=== PATIENT | male | born 1940 | race Caucasian/White ===

== ENCOUNTER 2016-04-30 08:35 | Outpatient (CLI) | payer MEDICARE ==
[2016-04-30 08:30] VITALS: BP 119/63
[~2016-04-30 08:35] MED LIST: ALBUTEROL-200 PUFFS/ IH; ALBUTEROL2.5 MG/NEB IN; ALEVE220 MG PO; ASPIRIN 325MG325 MG PO; ASTELIN NA137 MCG/BO; AZELASTINE137 MCG/Ac; BIAXIN FILMTAB500 MG PO; CEPHALEXIN500 MG PO; CIPROFLOXACIN500 MG PO; CLARITIN 10MG T10 MG PO; CO Q PO; DULERA1 AR1 IH; DULERA1 ARO IH; FERGON240 MG PO; FLOVENT 22220 MCG/PU IH; FLUTICASONE 50M16 GM; HUMALOG MIX 75/10 ML SC; HYDROCODONE-APA1 TA1 PO; KEFLEX500 M1 PO; LANTUS INS100 UNITS/ SC; LEVOTHYROXINE0.15 M1 PO; LOSARTAN POTASS50 MG PO; MEDROL 4MG TABLE4 MG PO; METFORMIN500 MG PO; MULTI VITAMINS1 TA1 PO; NEURONTIN 100100 MG PO; PERFOROMIS20 MCG/2 M IH; PHENAZOPYRIDIN200 MG PO; SINGULAIR4 MG PO; TAMSULOSIN HYD0.4 MG PO; TRAZODONE 50MG50 MG PO; XOLAIR150 MG SC; ZOCOR40 MG PO; [UNRECOGNIZED DRUG - OTHER] PO
[2016-05-14] MEDS ORDERED: IBUPROFEN400 MG PO (08:35)
[2016-06-11] MEDS ORDERED: ADVAIR HFA1 AER IH (08:31)
[2016-06-25] MEDS ORDERED: SINGULAIR10 MG PO (08:30)
[2016-08-06] MEDS ORDERED: HCTZ/TRIAMTEREN1 CA2 PO (08:39)
[2016-08-06] MEDS ORDERED: SPIRIVA RE2.5 MCG/Ac IH (08:40)
== END 2016-04-30 09:15 | disposition home or self-care (01) ==
LOC: COP 08:35
DX: J45.909 Unspecified asthma, uncomplicated (principal)
CPT/HCPCS: J2357

== ENCOUNTER 2016-05-28 08:00 | Outpatient (CLI) | payer MEDICARE ==
[2016-05-28 08:00] VITALS: BP 108/66
[~2016-05-28 08:00] MED LIST changes: +IBUPROFEN400 MG PO
--- NOTE | 2016-05-28 21:55 | RADIOLOGY REPORT PS360 ---
CHEST(2 VIEWS-NOT PORTABLE) ORDERING PHYSICIAN : SHEILA ZEPEDA PATIENT AGE: 76 years GENDER: Male INDICATION: chest symptomsCOUGH PROCEDURE: CHEST(2 VIEWS-NOT PORTABLE) COMPARISON: None available FINDINGS: Suboptimal inspiration with Diaphragms only down to the anterior fifth rib Elevation of the diaphragm also reflects the less than optimal inspiration Bibasilar atelectasis. . Difficult to exclude a minimal wispy infiltrate right lower lobe and possibly left on lateral view. Going through other prior studies the patient has had areas of pneumonia at right lower lobe more so than left in the past resulting likely is some scarring here as seen on prior CT chest. The heart is normal size. The jose and mediastinal structures appear stable. Chest wall unremarkable T-spine unremarkable. No pleural effusion. No pneumothorax. IMPRESSION . suboptimal inspiration with bibasilar atelectasis. Difficult to exclude minimal wispy infiltrate towards lower lobes bilaterally, but favor mainly viewing atelectasis and possibly minimal linear scarring . If symptoms progress consider follow-up. . .
[2016-06-11] MEDS ORDERED: ADVAIR HFA1 AER IH (08:31)
[2016-06-25] MEDS ORDERED: SINGULAIR10 MG PO (08:30)
[2016-08-06] MEDS ORDERED: HCTZ/TRIAMTEREN1 CA2 PO (08:39)
[2016-08-06] MEDS ORDERED: SPIRIVA RE2.5 MCG/Ac IH (08:40)
== END 2016-05-28 08:45 | disposition home or self-care (01) ==
LOC: RAD 08:00 → COP 08:00
DX: J45.909 Unspecified asthma, uncomplicated (principal)
CPT/HCPCS: J2357

== ENCOUNTER → 2016-06-12 | Outpatient (CLI) | payer MEDICARE ==
[~2016-06-12] MED LIST changes: +ADVAIR HFA1 AER IH; +HCTZ/TRIAMTEREN1 CA2 PO; +SINGULAIR10 MG PO; +SPIRIVA RE2.5 MCG/Ac IH
[2016-06-12 15:00] LABS: BUN 14 mg/dL (7-18); GFR (ESTIMATED) 53 ML/MIN (>60)
== END ==
LOC: LAB 07:09
PROVIDERS: Nurse Practitioner
DX: R05 Cough (principal); E55.9 Vitamin D deficiency, unspecified

== ENCOUNTER 2016-12-10 08:13 | Outpatient (CLI) | payer MEDICARE ==
[~2016-12-10 08:13] MED LIST changes: +ADVAIR HFA1 AER
[2016-12-10 08:38] VITALS: BP 123/64
[2016-12-10 08:58] VITALS: BP 124/69
== END 2016-12-10 09:00 | disposition home or self-care (01) ==
LOC: COP 08:13
DX: J45.909 Unspecified asthma, uncomplicated (principal)
CPT/HCPCS: J2357

== ENCOUNTER 2017-01-21 08:00 | Outpatient (CLI) | payer MEDICARE ==
[2017-01-21 08:45] VITALS: BP 125/63
== END 2017-01-21 09:00 | disposition home or self-care (01) ==
LOC: COP 08:00
DX: J45.909 Unspecified asthma, uncomplicated (principal)
CPT/HCPCS: J2357

== ENCOUNTER → 2017-02-01 | Outpatient (CLI) | payer MEDICARE ==
[2017-02-01 15:11] LABS: BUN 19 mg/dL (7-18); PROSTATE-SPECIFIC ANTIGEN F/U 3.6 ng/mL (0.0-4.0)
[2017-02-01 15:15] LABS: GFR (ESTIMATED) 49 ML/MIN (>60)
== END ==
LOC: LAB 08:20
PROVIDERS: Internal Medicine Adolescent Medicine
DX: N40.0 Benign prostatic hyperplasia without lower urinary tract symptoms (principal); E78.5 Hyperlipidemia, unspecified; E11.42 Type 2 diabetes mellitus with diabetic polyneuropathy; E03.9 Hypothyroidism, unspecified

== ENCOUNTER 2017-02-04 08:00 | Outpatient (CLI) | payer MEDICARE ==
[2017-02-04 08:30] VITALS: BP 118/66
== END 2017-02-04 08:50 | disposition home or self-care (01) ==
LOC: COP 08:00
DX: J45.909 Unspecified asthma, uncomplicated (principal)
CPT/HCPCS: J2357

== ENCOUNTER 2017-02-18 08:00 | Outpatient (CLI) | payer MEDICARE ==
[2017-02-18 08:29] VITALS: BP 110/73
== END 2017-02-18 08:40 | disposition home or self-care (01) ==
LOC: COP 08:00
DX: J45.909 Unspecified asthma, uncomplicated (principal)
CPT/HCPCS: J2357

== ENCOUNTER 2017-03-04 08:00 | Outpatient (CLI) | payer MEDICARE ==
[2017-03-04 08:45] VITALS: BP 110/61
== END 2017-03-04 08:45 | disposition home or self-care (01) ==
LOC: COP 08:00
DX: J45.909 Unspecified asthma, uncomplicated (principal)
CPT/HCPCS: J2357

== ENCOUNTER → 2017-03-14 | Outpatient (CLI) | payer MEDICARE | LOC: LAB 07:17 | DX: N40.1 Benign prostatic hyperplasia with lower urinary tract symptoms (principal); Z12.5 Encounter for screening for malignant neoplasm of prostate | CPT/HCPCS: G0103 ==

== ENCOUNTER 2017-03-18 08:00 | Outpatient (CLI) | payer MEDICARE ==
[2017-03-18 08:46] VITALS: BP 112/62
== END 2017-03-18 08:30 | disposition home or self-care (01) ==
LOC: COP 08:00
DX: J45.909 Unspecified asthma, uncomplicated (principal)
CPT/HCPCS: J2357

== ENCOUNTER → 2017-04-01 | Outpatient (CLI) | payer MEDICARE ==
[2017-04-01 08:45] VITALS: BP 113/76
== END ==
LOC: COP 08:00
DX: J45.50 Severe persistent asthma, uncomplicated (principal)
CPT/HCPCS: J2357

== ENCOUNTER → 2017-04-09 | Outpatient (CLI) | payer MEDICARE ==
--- NOTE | 2017-04-09 11:26 | RADIOLOGY REPORT PS360 ---
CHEST(2 VIEWS-NOT PORTABLE) HISTORY: LOWER RESP. TRACT INFECTION ORDERING PHYSICIAN: Riddhi Pringle APRN PATIENT AGE: 77 years COMPARISON: 05/28/2016 FINDINGS: The cardiomediastinal silhouette and pulmonary vascularity are within normal limits. There are atelectatic changes in both lower lobes within the lung bases. Upper lobes are clear. No acute bony anomalies.. IMPRESSION: Bibasilar atelectasis.
== END ==
LOC: RAD 11:02
DX: J22 Unspecified acute lower respiratory infection (principal)

== ENCOUNTER 2017-04-15 08:00 | Outpatient (CLI) | payer MEDICARE ==
[2017-04-15 09:04] VITALS: BP 135/63
== END 2017-04-15 08:50 | disposition home or self-care (01) ==
LOC: COP 08:00
DX: J45.50 Severe persistent asthma, uncomplicated (principal)
CPT/HCPCS: J2357